=== PATIENT | female | born 1960 | race Caucasian/White ===

== ENCOUNTER 2017-12-06 20:31 | Outpatient (REF) | payer MEDICARE, SELFPAY ==
[2017-12-06 20:59] LABS: BUN 22 mg/dL (7-18); CREATININE 0.87 mg/dL (0.55-1.02)
== END 2017-12-06 20:51 ==
LOC: NCHCN 20:31
PROVIDERS: Nurse Practitioner Family; PCP Physician Assistant Medical; Visit Provider Internal Medicine
DX: E11.65 Type 2 diabetes mellitus with hyperglycemia (principal)
CPT/HCPCS: 84520; 82565

== ENCOUNTER 2018-06-20 09:55 | Outpatient (REF) | payer MEDICARE, SELFPAY ==
[2018-06-20 19:17] LABS: Anion Gap 5.6 mmol/L (3-11); BUN 22 mg/dL (7-18); CO2 33.4 mmol/L (21.0-32.0); CREATININE 0.82 mg/dL (0.55-1.02); Calcium 9.3 mg/dL (8.5-10.1); Chloride 103 mmol/L (98-107); Cholesterol 276 mg/dL (50-200); Glucose 153 mg/dL (70-100); HDL Cholesterol 39 mg/dL (40-60); LDL CHOLESTEROL 205 mg/dL (<100); Potassium 5.4 mmol/L (3.5-5.1); Sodium 142 mmol/L (136-145); Triglyceride 143 mg/dL (30-150)
== END 2018-06-20 10:15 ==
LOC: NCHCN 09:55
PROVIDERS: PCP Physician Assistant Medical; Visit Provider Physician Assistant Medical
DX: E11.65 Type 2 diabetes mellitus with hyperglycemia (principal)
CPT/HCPCS: 80048; 80061; 83721

== ENCOUNTER 2019-01-24 10:24 | Outpatient (REF) | payer MEDICARE, SELFPAY ==
[2019-01-24 20:24] LABS: Anion Gap 10.4 mmol/L (3-11); BUN 21 mg/dL (7-18); CO2 34.6 mmol/L (21.0-32.0); CREATININE 1.35 mg/dL (0.55-1.02); Calcium 9.5 mg/dL (8.5-10.1); Calculated LDL 29 mg/dL; Chloride 93 mmol/L (98-107); Cholesterol 92 mg/dL (50-200); Estimated GFR 40.28 (mL/min/1.73m2); Glucose 368 mg/dL (70-100); HDL Cholesterol 35 mg/dL (40-60); Potassium 3.2 mmol/L (3.5-5.1); Sodium 138 mmol/L (136-145); Triglyceride 141 mg/dL (30-150)
== END 2019-01-24 10:44 ==
LOC: NCHCN 10:24
PROVIDERS: Nurse Practitioner Family; PCP Physician Assistant Medical; Visit Provider Physician Assistant Medical
DX: E11.65 Type 2 diabetes mellitus with hyperglycemia (principal)
CPT/HCPCS: 80048; 80061